=== PATIENT | female | born 1965 | race Caucasian/White ===

== ENCOUNTER 2018-01-10 21:43 | Emergency (ER) | payer OTHER, SELFPAY ==
[2018-01-10 21:45] VITALS: BP 119/66; PULSE 76; RESP 16; O2SAT 96
--- NOTE | 2018-01-10 21:49 | DI.CT.S_ITS ---
PROCEDURE: CT HEAD/BRAIN WO CON INDICATIONS: fall down etoh TECHNIQUE: Noncontrast 4.5 mm thick angled axial sections acquired from the foramen magnum to the vertex, with coronal and sagittal reformats. For radiation dose reduction, the following was used: automated exposure control, adjustment of mA and/or kV according to patient size. COMPARISON: None. FINDINGS: Image quality: Excellent. CSF spaces: Basal cisterns are patent. No extra-axial fluid collections. Ventricles are normal in size and shape. Brain: No midline shift. No intracranial masses or hemorrhage. Contreras-white matter interface is normal. Skull and face: Calvarium and visualized facial bones are intact, without suspicious lesions. Sinuses: Visualized sinuses and mastoids are clear. IMPRESSION: 1. No acute intracranial abnormalities. No significant discrepancy with the marine steam fitter helper radiology preliminary report. Dictated by: Stephie Weems M.D. on 01/11/2018 at 7:19 Approved by: Stephie Weems M.D. on 01/11/2018 at 7:20
--- NOTE | 2018-01-10 22:40 | ED.FALL ---
HPI - Fall General Chief Complaint: Fall Stated Complaint: GLF Time Seen by Provider: 01/10/18 21:49 Source: EMS Mode of arrival: EMS History of Present Illness HPI Narrative: Patient is a 52-year-old female who presents after a ground level fall. She is intoxicated she was out the art [place] when she fell down. No loss of consciousness. Initially refused to come however changed her mind. She is awake alert answering questions. She does have some slurring of speech. No other injuries. Related Data Home Medications Medication Instructions Recorded Confirmed IBUPROFEN (Motrin / Advil) 600 mg PO PRN #0 08/11/09 Allergies Allergy/AdvReac Type Severity Reaction Status Date / Time No Known Drug Allergies Allergy Verified 01/10/18 21:57 Review of Systems Review of Systems All systems reviewed & are unremarkable except as noted in HPI and below Constitutional Denies chills, Denies fever(s), Denies lethargy and Denies weakness Eyes Denies change in vision, Denies eye discharge, Denies irritation and Denies loss of vision ENT Ears, Nose, Mouth, and Throat: Denies change in voice, Denies neck pain and Denies sore throat Cardiovascular Denies chest pain, Denies irregular heart rhythm, Denies lightheadedness, Denies palpitations, Denies dyspnea, Denies dyspnea on exertion and Denies orthopnea Respiratory Denies cough, Denies dyspnea, Denies dyspnea on exertion and Denies wheezing Gastrointestinal Gastrointestinal: Denies abdominal pain, Denies change in bowel habits, Denies diarrhea, Denies nausea and Denies vomiting Musculoskeletal Denies neck pain Integumentary/Breasts Denies pruritus, Denies erythema, Denies rash and Denies wounds Neurologic Denies loss of vision and Denies weakness Endocrine Denies palpitations Allergic/Immunologic Denies wheezing Exam Initial Vital Signs Initial Vital Signs: Vital Signs Pulse Rate 76 01/10/18 21:45 Respiratory Rate 16 01/10/18 21:45 Blood Pressure 119/66 01/10/18 21:45 Pulse Oximetry 96 01/10/18 21:45 GENERAL: Awake alert follows commands, mild slurring of speech HEENT: Head atraumatic,EOMI, pupils reactive, neck is supple no vertebral tenderness no sign of trauma CARDIOVASCULAR: Regular rate and rhythm without murmurs, rubs or gallops. RESPIRATORY: Breath sounds equal bilaterally, no wheezes rales or rhonchi. ABDOMEN: Soft, nontender. Normoactive bowel sounds all 4 quadrants. No guarding or rebound. EXTREMITIES: Normal range of motion, no clubbing or edema. Neurovascularly intact NEUROLOGICAL: Alert and orientedx3. Cranial nerves II through XII grossly intact. Good [id number], good jgpr-ij-[id number], strength equal bilaterally, no dysarthria or aphasia, sensation in tact to soft touch bilaterally, no visual changes, no facial droop SKIN: Warm, dry, no laceration, no petechiae, no rashes or lesions. [facility] Social History Smoking Status: Never smoker Course Orders Ordered: ED Orders 01/10/18 21:49 CT head/brain wo con Stat Vital Signs - 8 hr 01/10/18 21:45 Pulse Rate 76 Respiratory Rate 16 Blood Pressure 119/66 Pulse Oximetry 96 MDM - Fall Imaging Data CT scan - head: Radiologist's impression: .net developer report: No head CT evidence of hemorrhage, mass or acute infarct MDM Narrative Medical decision making narrative: Patient has a ride home. She has a steady gait Discharge Plan Departure Patient Disposition: Home, Self-Care Clinical Impression: Closed head injury, Alcohol intoxication Discharge Date/Time: 01/10/18 23:05 Interventions: ED Discharge Assessment Last Done: 01/10/18 23:04 Instructions: DI for Alcohol Abuse, DI for Closed Head Injury Activity Restrictions/Additional Instructions: *You have been diagnosed with closed head injury, alcohol intoxication *Continue to take medications as directed *Follow up with your primary care provider in 2-3 days *Return to ER if you should have change in behavior, weakness, or any new, worsening or concerning symptoms Prescriptions: No Action IBUPROFEN (Motrin / Advil) 600 mg PO PRN Qty: 0 RF: 0
--- NOTE | 2018-01-10 22:44 | ED_ITS ---
HPI - Fall General Chief Complaint: Fall Stated Complaint: GLF Time Seen by Provider: 01/10/18 21:49 Source: EMS Mode of arrival: EMS History of Present Illness HPI Narrative: Patient is a 52-year-old female who presents after a ground level fall. She is intoxicated she was out the art festival when she fell down. No loss of consciousness. Initially refused to come however changed her mind. She is awake alert answering questions. She does have some slurring of speech. No other injuries. Related Data Home Medications Medication Instructions Recorded Confirmed IBUPROFEN (Motrin / Advil) 600 mg PO PRN #0 08/11/09 Allergies Allergy/AdvReac Type Severity Reaction Status Date / Time No Known Drug Allergies Allergy Verified 01/10/18 21:57 Review of Systems Review of Systems All systems reviewed & are unremarkable except as noted in HPI and below Constitutional Denies chills, Denies fever(s), Denies lethargy and Denies weakness Eyes Denies change in vision, Denies eye discharge, Denies irritation and Denies loss of vision ENT Ears, Nose, Mouth, and Throat: Denies change in voice, Denies neck pain and Denies sore throat Cardiovascular Denies chest pain, Denies irregular heart rhythm, Denies lightheadedness, Denies palpitations, Denies dyspnea, Denies dyspnea on exertion and Denies orthopnea Respiratory Denies cough, Denies dyspnea, Denies dyspnea on exertion and Denies wheezing Gastrointestinal Gastrointestinal: Denies abdominal pain, Denies change in bowel habits, Denies diarrhea, Denies nausea and Denies vomiting Musculoskeletal Denies neck pain Integumentary/Breasts Denies pruritus, Denies erythema, Denies rash and Denies wounds Neurologic Denies loss of vision and Denies weakness Endocrine Denies palpitations Allergic/Immunologic Denies wheezing Exam Initial Vital Signs Initial Vital Signs: Vital Signs Pulse Rate 76 01/10/18 21:45 Respiratory Rate 16 01/10/18 21:45 Blood Pressure 119/66 01/10/18 21:45 Pulse Oximetry 96 01/10/18 21:45 GENERAL: Awake alert follows commands, mild slurring of speech HEENT: Head atraumatic,EOMI, pupils reactive, neck is supple no vertebral tenderness no sign of trauma CARDIOVASCULAR: Regular rate and rhythm without murmurs, rubs or gallops. RESPIRATORY: Breath sounds equal bilaterally, no wheezes rales or rhonchi. ABDOMEN: Soft, nontender. Normoactive bowel sounds all 4 quadrants. No guarding or rebound. EXTREMITIES: Normal range of motion, no clubbing or edema. Neurovascularly intact NEUROLOGICAL: Alert and orientedx3. Cranial nerves II through XII grossly intact. Good [id number], good fgdg-gv-kjsg, strength equal bilaterally, no dysarthria or aphasia, sensation in tact to soft touch bilaterally, no visual changes, no facial droop SKIN: Warm, dry, no laceration, no petechiae, no rashes or lesions. [facility] Social History Smoking Status: Never smoker Course Orders Ordered: ED Orders 01/10/18 21:49 CT head/brain wo con Stat Vital Signs - 8 hr 01/10/18 21:45 Pulse Rate 76 Respiratory Rate 16 Blood Pressure 119/66 Pulse Oximetry 96 MDM - Fall Imaging Data CT scan - head: Radiologist's impression: assembler 1st shift report: No head CT evidence of hemorrhage, mass or acute infarct MDM Narrative Medical decision making narrative: Patient has a ride home. She has a steady gait Discharge Plan Departure Patient Disposition: Home, Self-Care Clinical Impression: Closed head injury, Alcohol intoxication Discharge Date/Time: 01/10/18 23:05 Interventions: ED Discharge Assessment Last Done: 01/10/18 23:04 Instructions: DI for Alcohol Abuse, DI for Closed Head Injury Activity Restrictions/Additional Instructions: *You have been diagnosed with closed head injury, alcohol intoxication *Continue to take medications as directed *Follow up with your primary care provider in 2-3 days *Return to ER if you should have change in behavior, weakness, or any new, worsening or concerning symptoms Prescriptions: No Action IBUPROFEN (Motrin / Advil) 600 mg PO PRN Qty: 0 RF: 0
== END 2018-01-10 23:05 | disposition home or self-care (01) ==
PROVIDERS: Emergency Provider Emergency Medicine
DX: S09.90XA Unspecified injury of head, initial encounter (principal); F10.929 Alcohol use, unspecified with intoxication, unspecified; W18.30XA Fall on same level, unspecified, initial encounter
CPT/HCPCS: 70450; 99282; 99284

== ENCOUNTER 2018-10-08 13:24 | Emergency (ER) | payer OTHER, SELFPAY ==
[2018-10-08 13:41] VITALS: BP 147/92; PULSE 74; RESP 12; TEMP 36.2; O2SAT 98; BMI 29.9
[2018-10-08] MEDS: TET,DIPH,PERTUSS(ACELL),VAC/PF 0.5 ML SYRINGE IM (15:20)
[2018-10-08 17:43] VITALS: BP 158/76; PULSE 56; RESP 16
--- NOTE | 2018-10-08 20:52 | ED.WOUNDLAC ---
HPI - Wound/Laceration <MAURICIO Rocha - Last Filed: 10/08/18 20:58> General Chief Complaint: Wound/Laceration Stated Complaint: Right heel cut by door Time Seen by Provider: 10/08/18 15:10 Source: patient and family Mode of arrival: ambulatory Limitations: no limitations History of Present Illness HPI narrative: The patient is a 53-year-old female nonsmoker presents with chief complaint of laceration to her right heel, which was done by a a metal door. She denies any decreased range of motion. She has not washed out. She does not know when her last tetanus was. She denies any possibility of of foreign body. This happened at work. Related Data Home Medications Medication Instructions Recorded Confirmed IBUPROFEN (Motrin / Advil) 600 mg PO PRN #0 08/11/09 Allergies Allergy/AdvReac Type Severity Reaction Status Date / Time No Known Drug Allergies Allergy Verified 10/08/18 13:48 Review of Systems <MAURICIO Rocha - Last Filed: 10/08/18 20:58> Review of Systems GENERAL: Denies chills, fatigue, malaise, fever, sweats. HEENT: Denies sinus pain, ear pain, sore throat, difficulty swallowing, dizziness. RESPIRATORY: Denies dyspnea, cough, wheezing, hemoptysis, sputum. CARDIOVASCULAR: Denies chest pain, palpitations, orthopnea, edema, GASTROINTESTINAL: Denies nausea, vomiting, abdominal pain, diarrhea, constipation, melena. : Denies dysuria, frequency, incontinence, hematuria, urinary retention. MUSCULOSKELETAL: See HPI SKIN: See HPI NEUROLOGIC: Denies weakness, headache, numbness, change in speech, confusion, seizures, incoordination. PSYCHIATRIC: No concerning psychosocial issues. 12 point review of systems is negative except for those stated above PFSH <MAURICIO Rocha - Last Filed: 10/08/18 20:58> Social History Smoking Status: Never smoker Social History Smoking Status: Never smoker Exam <MAURICIO Rocha - Last Filed: 10/08/18 20:58> Narrative Exam Narrative: GENERAL: This is a well-nourished, well-developed patient, in mild distress. HEAD: Atraumatic. Normocephalic. No temporal or scalp tenderness. EYES: Pupils equal round and reactive. Extraocular motions intact. No scleral icterus. No injection or drainage. ENT: Nose without bleeding, purulent drainage or septal hematoma. Throat without erythema, tonsillar hypertrophy or exudate. Uvula midline. Airway patent. NECK: Trachea midline. No JVD or lymphadenopathy. Supple, nontender, no meningeal signs. CARDIOVASCULAR: Regular rate and rhythm RESPIRATORY: No increased respiratory effort. No accessory muscle use. EXTREMITIES: No pain to palpation right ankle. Full range of motion noted right ankle. Positive radial pulse. BACK: Nontender without deformity or crepitance. No flank tenderness. NEURO: AOx3. SKIN: 2 cm linear laceration posterior aspect of right heel. Through dermis. No obvious tendon or muscle involvement. No obvious foreign body. Initial Vital Signs Initial Vital Signs: Vital Signs Temperature 97.1 F L 10/08/18 13:41 Pulse Rate 74 10/08/18 13:41 Respiratory Rate 12 10/08/18 13:41 Blood Pressure 147/92 H 10/08/18 13:41 Pulse Oximetry 98 10/08/18 13:41 <Tami Muñoz MD - Last Filed: 10/09/18 12:05> Initial Vital Signs Initial Vital Signs: Vital Signs Temperature 97.1 F L 10/08/18 13:41 Pulse Rate 74 10/08/18 13:41 Respiratory Rate 12 10/08/18 13:41 Blood Pressure 147/92 H 10/08/18 13:41 Pulse Oximetry 98 10/08/18 13:41 Procedures <MAURICIO Rocha - Last Filed: 10/08/18 20:58> Laceration Repair Laceration 1: Site: lower extremity Side (If applicable): right Size (cm): 2 Description: linear Depth: simple, single layer Local Anesthetic: lidocaine 1% Amount of anesthesia used (mL): 3 Pre-repair: wound explored and irrigated extensively (Hibiclens and sterile water) Skin layer closed with: nylon Size (cm): 4-0 Number of sutures: 3 Technique: simple, interrupted Course <MAURICIO Rocha - Last Filed: 10/08/18 20:58> Orders Ordered: Discontinued Medications Diphtheria/Tetanus/Acell Pertussis (Adacel) 0.5 ml IM .ONCE ONE Stop: 10/08/18 14:33 Last Admin: 10/08/18 15:20 Dose: 0.5 ml Vital Signs - 8 hr 10/08/18 13:41 10/08/18 17:43 Temperature 97.1 F L Pulse Rate 74 56 L Respiratory Rate 12 16 Blood Pressure 147/92 H Blood Pressure [Right Arm] 158/76 H Pulse Oximetry 98 <Tami Muñoz MD - Last Filed: 10/09/18 12:05> Orders Ordered: Discontinued Medications Diphtheria/Tetanus/Acell Pertussis (Adacel) 0.5 ml IM .ONCE ONE Stop: 10/08/18 14:33 Last Admin: 10/08/18 15:20 Dose: 0.5 ml Vital Signs - 8 hr 10/08/18 13:41 10/08/18 17:43 Temperature 97.1 F L Pulse Rate 74 56 L Respiratory Rate 12 16 Blood Pressure 147/92 H Blood Pressure [Right Arm] 158/76 H Pulse Oximetry 98 MDM - Wound/Laceration <CARL Rocha - Last Filed: 10/08/18 20:58> [facility] Narrative Medical decision making narrative: The patient is a 53-year-old female who presents with a chief complaint of laceration. It was closed as documented and procedural note. She tolerated it well. She was updated on her tetanus. I discussed at length monitor for signs and symptoms of infection including redness pus etc. Encouraged follow-up with primary care provider as well as follow up with suture removal in approximately 8-10 days. Patient has no questions or concerns upon discharge and states understanding of return precautions as well as follow-up care. They did decline an x-ray to check for foreign body. She does have full range of motion. L and I paperwork filled out. Discharge Plan Departure Patient Disposition: Home Clinical Impression: Laceration Discharge Date/Time: 10/08/18 17:53 Interventions: ED Discharge Assessment Last Done: 10/08/18 17:52 Instructions: DI for Laceration Repair -- Simple, DI for Minor Laceration Activity Restrictions/Additional Instructions: Today we cleansed her wound, updated her tetanus. Please rest her leg and keep it elevated. Please monitor for signs and symptoms of infection such as redness, pus and fever. Please follow up to have her sutures removed in about 8-10 days. You can contact the health land resource specialist at [phone] to help follow up with primary care provider. Please rest her leg and use [id number] pain medications as needed and able. Please do not submerge your foot and dirty water or swim in dirty water. Prescriptions: No Action IBUPROFEN (Motrin / Advil) 600 mg PO PRN Qty: 0 RF: 0
--- NOTE | 2018-10-08 20:57 | ED_ITS ---
HPI - Wound/Laceration <MAURICIO Rocha - Last Filed: 10/08/18 20:58> General Chief Complaint: Wound/Laceration Stated Complaint: Right heel cut by door Time Seen by Provider: 10/08/18 15:10 Source: patient and family Mode of arrival: ambulatory Limitations: no limitations History of Present Illness HPI narrative: The patient is a 53-year-old female nonsmoker presents with chief complaint of laceration to her right heel, which was done by a a metal door. She denies any decreased range of motion. She has not washed out. She does not know when her last tetanus was. She denies any possibility of of foreign body. This happened at work. Related Data Home Medications Medication Instructions Recorded Confirmed IBUPROFEN (Motrin / Advil) 600 mg PO PRN #0 08/11/09 Allergies Allergy/AdvReac Type Severity Reaction Status Date / Time No Known Drug Allergies Allergy Verified 10/08/18 13:48 Review of Systems <MAURICIO Rocha - Last Filed: 10/08/18 20:58> Review of Systems GENERAL: Denies chills, fatigue, malaise, fever, sweats. HEENT: Denies sinus pain, ear pain, sore throat, difficulty swallowing, dizziness. RESPIRATORY: Denies dyspnea, cough, wheezing, hemoptysis, sputum. CARDIOVASCULAR: Denies chest pain, palpitations, orthopnea, edema, GASTROINTESTINAL: Denies nausea, vomiting, abdominal pain, diarrhea, constipation, melena. : Denies dysuria, frequency, incontinence, hematuria, urinary retention. MUSCULOSKELETAL: See HPI SKIN: See HPI NEUROLOGIC: Denies weakness, headache, numbness, change in speech, confusion, seizures, incoordination. PSYCHIATRIC: No concerning psychosocial issues. 12 point review of systems is negative except for those stated above PFSH <MAURICIO Rocha - Last Filed: 10/08/18 20:58> Social History Smoking Status: Never smoker Social History Smoking Status: Never smoker Exam <MAURICIO Rocha - Last Filed: 10/08/18 20:58> Narrative Exam Narrative: GENERAL: This is a well-nourished, well-developed patient, in mild distress. HEAD: Atraumatic. Normocephalic. No temporal or scalp tenderness. EYES: Pupils equal round and reactive. Extraocular motions intact. No scleral icterus. No injection or drainage. ENT: Nose without bleeding, purulent drainage or septal hematoma. Throat without erythema, tonsillar hypertrophy or exudate. Uvula midline. Airway patent. NECK: Trachea midline. No JVD or lymphadenopathy. Supple, nontender, no meningeal signs. CARDIOVASCULAR: Regular rate and rhythm RESPIRATORY: No increased respiratory effort. No accessory muscle use. EXTREMITIES: No pain to palpation right ankle. Full range of motion noted right ankle. Positive radial pulse. BACK: Nontender without deformity or crepitance. No flank tenderness. NEURO: AOx3. SKIN: 2 cm linear laceration posterior aspect of right heel. Through dermis. No obvious tendon or muscle involvement. No obvious foreign body. Initial Vital Signs Initial Vital Signs: Vital Signs Temperature 97.1 F L 10/08/18 13:41 Pulse Rate 74 10/08/18 13:41 Respiratory Rate 12 10/08/18 13:41 Blood Pressure 147/92 H 10/08/18 13:41 Pulse Oximetry 98 10/08/18 13:41 <Tami Muñoz MD - Last Filed: 10/09/18 12:05> Initial Vital Signs Initial Vital Signs: Vital Signs Temperature 97.1 F L 10/08/18 13:41 Pulse Rate 74 10/08/18 13:41 Respiratory Rate 12 10/08/18 13:41 Blood Pressure 147/92 H 10/08/18 13:41 Pulse Oximetry 98 10/08/18 13:41 Procedures <MAURICIO Rocha - Last Filed: 10/08/18 20:58> Laceration Repair Laceration 1: Site: lower extremity Side (If applicable): right Size (cm): 2 Description: linear Depth: simple, single layer Local Anesthetic: lidocaine 1% Amount of anesthesia used (mL): 3 Pre-repair: wound explored and irrigated extensively (Hibiclens and sterile water) Skin layer closed with: nylon Size (cm): 4-0 Number of sutures: 3 Technique: simple, interrupted Course <MAURICIO Rocha - Last Filed: 10/08/18 20:58> Orders Ordered: Discontinued Medications Diphtheria/Tetanus/Acell Pertussis (Adacel) 0.5 ml IM .ONCE ONE Stop: 10/08/18 14:33 Last Admin: 10/08/18 15:20 Dose: 0.5 ml Vital Signs - 8 hr 10/08/18 13:41 10/08/18 17:43 Temperature 97.1 F L Pulse Rate 74 56 L Respiratory Rate 12 16 Blood Pressure 147/92 H Blood Pressure [Right Arm] 158/76 H Pulse Oximetry 98 <Tami Muñoz MD - Last Filed: 10/09/18 12:05> Orders Ordered: Discontinued Medications Diphtheria/Tetanus/Acell Pertussis (Adacel) 0.5 ml IM .ONCE ONE Stop: 10/08/18 14:33 Last Admin: 10/08/18 15:20 Dose: 0.5 ml Vital Signs - 8 hr 10/08/18 13:41 10/08/18 17:43 Temperature 97.1 F L Pulse Rate 74 56 L Respiratory Rate 12 16 Blood Pressure 147/92 H Blood Pressure [Right Arm] 158/76 H Pulse Oximetry 98 MDM - Wound/Laceration <CARL Rocha - Last Filed: 10/08/18 20:58> [facility] Narrative Medical decision making narrative: The patient is a 53-year-old female who presents with a chief complaint of laceration. It was closed as documented and procedural note. She tolerated it well. She was updated on her tetanus. I discussed at length monitor for signs and symptoms of infection including red ness pus etc. Encouraged follow-up with primary care provider as well as follow up with suture removal in approximately 8-10 days. Patient has no questions or concerns upon discharge and states understanding of return precautions as well as follow-up care. They did decline an x-ray to check for foreign body. She does have full range of motion. L and I paperwork filled out. Discharge Plan Departure Patient Disposition: Home Clinical Impression: Laceration Discharge Date/Time: 10/08/18 17:53 Interventions: ED Discharge Assessment Last Done: 10/08/18 17:52 Instructions: DI for Laceration Repair -- Simple, DI for Minor Laceration Activity Restrictions/Additional Instructions: Today we cleansed her wound, updated her tetanus. Please rest her leg and keep it elevated. Please monitor for signs and symptoms of infection such as redness, pus and fever. Please follow up to have her sutures removed in about 8-10 days. You can contact the health senior human resources representative at [phone] to help follow up with primary care provider. Please rest her leg and use [id number] pain medications as needed and able. Please do not submerge your foot and dirty water or swim in dirty water. Prescriptions: No Action IBUPROFEN (Motrin / Advil) 600 mg PO PRN Qty: 0 RF: 0
== END 2018-10-08 17:53 | disposition home or self-care (01) ==
PROVIDERS: Emergency Provider Nurse Practitioner Family
DX: S91.311A Laceration without foreign body, right foot, initial encounter (principal); W26.8XXA Contact with other sharp object(s), not elsewhere classified, initial encounter; Y99.0 Civilian activity done for income or pay; Z23 Encounter for immunization
CPT/HCPCS: 12001; 90471; 99283; 90715

== ENCOUNTER → 2020-02-16 08:01 | Outpatient (CLI) | payer OTHER, SELFPAY ==
--- NOTE | 2020-02-16 | DI.RAD.S_ITS ---
PROCEDURE: XR LUMBAR SPINE 2-3V INDICATIONS: LUMBAR AND HIP PAIN TECHNIQUE: 3 views of the lumbar spine were acquired. COMPARISON: None. FINDINGS: Bones: Mild dextroconvex scoliotic curvature is seen. 5 nonrib-bearing, lumbar type vertebral bodies are seen. No displaced fractures are seen. No suspicious lytic or blastic lesions are seen. Mild loss of disc height is seen at the L4-5 level. The disc heights otherwise appear well-preserved. Lower lumbar spine facet arthropathy is seen. Moderate hip joint degenerative change is noted, right worse than left. Soft tissues: Overlying bowel gas pattern is normal. No suspicious soft tissue calcifications. IMPRESSION: Lumbar spine degenerative changes are seen by plain film, which are most prominent at the L4-5 level. Note is made of moderate degenerative change of the hips, right worse than left. Dictated by: Oneal Hobbs M.D. on 02/16/2020 at 11:58 Approved by: Oneal Hobbs M.D. on 02/16/2020 at 11:59
== END ==
PROVIDERS: PCP Nurse Practitioner Family; Referring Provider Chiropractor; Visit Provider Chiropractor
DX: M54.5 Low back pain (principal); M25.551 Pain in right hip; M47.816 Spondylosis without myelopathy or radiculopathy, lumbar region
CPT/HCPCS: 72100

== ENCOUNTER → 2020-08-25 14:42 | Outpatient (CLI) | payer OTHER, SELFPAY ==
[2020-08-25] MEDS: COVID-19 VACC #1, MRNA(MOD) 100 MCG/0.5 ML VIAL IM (14:50)
== END ==
PROVIDERS: PCP Nurse Practitioner Family; Visit Provider Internal Medicine
DX: Z23 Encounter for immunization (principal)
CPT/HCPCS: 0011A; 91301

== ENCOUNTER → 2020-09-23 07:31 | Outpatient (CLI) | payer OTHER, SELFPAY ==
[2020-09-23] MEDS: COVID-19 VACC #2, MRNA(MOD) 100 MCG/0.5 ML VIAL IM (07:37)
== END ==
PROVIDERS: PCP Nurse Practitioner Family; Visit Provider Internal Medicine
DX: Z23 Encounter for immunization (principal)
CPT/HCPCS: 0012A; 91301

== ENCOUNTER → 2023-04-29 12:08 | Outpatient (CLI) | payer OTHER, SELFPAY ==
[2023-04-29 13:12] LABS: Add Manual Diff / Slide Review NO; Basophils Absolute Auto 100 /uL (0-100); Eosinophils Absolute Auto 200 /uL (0-450); Eosinophils Percent Auto 3.2 % (2-4); Hematocrit 40.7 % (36-46); Hemoglobin 13.9 g/dL (12.0-16.0); Lymphocytes Absolute Auto 2100 /uL (1100-4500); Lymphocytes Percent Auto 33.9 % (25-40); Mean Corpuscular HGB Conc 34.1 % (30-36); Mean Corpuscular Hemoglobin 32.4 PG (26-34); Mean Corpuscular Volume 95.1 fL (80-100); Monocytes Absolute Auto 400 /uL (0-900); Monocytes Percent Auto 6.8 % (3-14); Neutrophils Absolute Auto 3400 /uL (1500-7000); Neutrophils Percent Auto 55.1 % (50-75); Platelet Count 227 X10^3/uL (150-400); Red Blood Cell Count 4.29 X10^6/uL (4.0-5.2); Red Cell Distribution Width 12.3 % (11.6-14.8); White Blood Cell Count 6.2 X10^3/uL (4.5-11.0)
[2023-04-29 13:48] LABS: Alanine Aminotransferase 33 IU/L (<35); Albumin 4.4 g/dL (3.5-5.0); Albumin Globulin Ratio 1.6 (1.0-2.8); Alkaline Phosphatase 73 U/L (38-126); Aspartate Aminotransferase 37 IU/L (14-36); BUN Creatinine Ratio 27.4 (6-22); Bilirubin Total 0.6 mg/dL (0.2-1.3); Blood Urea Nitrogen 20 mg/dL (7-17); Calcium 10.3 mg/dL (8.4-10.2); Carbon Dioxide 29 mmol/L (22-32); Chloride 102 mmol/L (98-107); Estimated Glomerular Filt Rate > 60 mL/min (>60); Globulin 2.8 g/dL (1.7-4.1); Glucose 115 mg/dL (70-100); HEMOLYSIS < 15 (0-50); Potassium 4.2 mmol/L (3.4-5.1); Sodium 136 mmol/L (137-145); Total Protein 7.2 g/dL (6.3-8.2)
[2023-04-29 13:59] LABS: TSH w/ Reflex to FT4 5.34 uIU/mL (0.47-4.68)
[2023-04-29 14:55] LABS: Appearance Urine UA CLEAR; Bilirubin Urine UA NEGATIVE (NEGATIVE); Color Urine UA YELLOW; Glucose Urine UA NEGATIVE (Negative); Ketones Urine UA NEGATIVE (NEGATIVE); Leukocyte Esterase Urine UA 1+ (NEGATIVE); Nitrite Urine UA NEGATIVE (Negative); Occult Blood Urine UA NEGATIVE (Negative); Protein Urine UA NEGATIVE (Negative); Urobilinogen Urine UA 0.2 E.U./dL (0.2)
[2023-04-29 15:07] LABS: Free T4, Direct Thyroxine 0.72 ng/dL (0.78-2.19)
[2023-04-29 15:13] LABS: RBC Urine 0-1/HPF (0-5/HPF); WBC Urine 5-10/HPF (0-5/HPF)
[2023-04-29 15:14] LABS: Bacteria Urine Occasional (0-1); Culture Indicated Urine Specimen Cultured; Squamous Epithelial Cell Urine 1-5 /HPF (0-5/HPF)
[2023-04-29 16:40] LABS: Microalbumin Urine Random 0.6 mg/dL (0-1.6)
[2023-04-29 16:44] LABS: Creatinine Urine Random 26.1 mg/dL; Microalbumi Creatinin Ratio Ur 22.9 ug/mg CR (<30)
== END ==
PROVIDERS: PCP Registered Nurse Diabetes Educator; Referring Provider Registered Nurse Diabetes Educator; Visit Provider Registered Nurse Diabetes Educator
DX: I10 Essential (primary) hypertension (principal)
CPT/HCPCS: 36415; 80053; 81001; 82043; 82570; 84439; 84443; 85025; 87086

== ENCOUNTER → 2023-05-24 08:47 | Outpatient (CLI) | payer OTHER, SELFPAY ==
--- NOTE | 2023-05-24 | DI.MRI.S_ITS ---
PROCEDURE: MR ANKLE LT WO CON INDICATIONS: ACHILLES TENDONOSIS OF LEFT ANKLE TECHNIQUE: Noncontrast sagittal T1 spin echo and T2 fast spin echo with fat saturation, axial proton density fast spin echo and T2 fast spin echo with fat saturation, coronal T1 spin echo and T2 fast spin echo with fat saturation through the ankle/hindfoot. COMPARISON: [facility], CR, XR FOOT 3 VIEWS WEIGHT BEARING BILATERAL, 05/14/2023, 14:42. FINDINGS: Image quality: Excellent. 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 There is mild osseous edema at the Achilles insertion. There is a large nonedematous plantar calcaneal enthesophyte. Mild degenerative spurring is seen at the talonavicular and navicular cuneiform articulations. No bone marrow contusions or fractures. No hindfoot coalitions. No osteochondral injuries of the talar dome. Medial structures: The deep and superficial layers of the deltoid ligament appear intact. The spring ligament components are intact. The posterior tibialis, flexor digitorum longus, and flexor hallucis longus tendons are intact. The posterior tibial neurovascular bundle appears normal within the tarsal tunnel, without extrinsic mass effect. Lateral structures: Remote prior low-grade sprains of the anterior talofibular ligament and calcaneofibular ligament. The posterior talofibular ligament is intact. The anterior and posterior tibiofibular ligaments appear intact. Mild peroneus brevis and longus tendinosis. The sinus tarsi demonstrates normal fatty signal. Anterior structures: The tibialis anterior, extensor hallucis longus, and extensor digitorum longus tendons appear intact. The dorsal talonavicular ligament appears intact. Posterior and plantar structures: There is marked thickening of the distal Achilles tendon. Mild focal fluid signal is suspicious for chronic partial tearing. There is a moderate retrocalcaneal bursal effusion or bursitis. The proximal plantar fascia is mildly thickened without surrounding edema. There is severe fatty infiltration of the abductor digiti quinti muscle, consistent with chronic denervation changes/Lo neuropathy. IMPRESSION: 1. 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 2. Moderate retrocalcaneal bursal effusion or bursitis. 3. Mild osseous edema at the posterior calcaneus may be reactive or related to traction trabecular bone injury. A Kiley deformity is noted. 4. Mild chronic proximal plantar fasciitis. 5. Remote prior low-grade sprains of the anterior talofibular ligament and the calcaneofibular ligament. 6. Mild peroneus brevis and longus tendinosis. Approved by: Grant Maya M.D. on 05/24/2023 at 13:47
== END ==
PROVIDERS: PCP Registered Nurse Diabetes Educator; Referring Provider Orthopaedic Surgery Foot and Ankle Surgery; Visit Provider Orthopaedic Surgery Foot and Ankle Surgery
DX: S93.492A Sprain of other ligament of left ankle, initial encounter (principal); S93.411A Sprain of calcaneofibular ligament of right ankle, initial encounter; M67.874 Other specified disorders of tendon, left ankle and foot; M92.62 Juvenile osteochondrosis of tarsus, left ankle; M72.2 Plantar fascial fibromatosis
CPT/HCPCS: 73721

== ENCOUNTER → 2023-05-25 08:09 | Outpatient (CLI) | payer OTHER, SELFPAY ==
[2023-05-25 08:53] LABS: Hemoglobin A1C% w Est Avg Glu 5.8 % (4.0-6.0)
[2023-05-25 08:59] LABS: Alanine Aminotransferase 28 IU/L (<35); Albumin 4.4 g/dL (3.5-5.0); Albumin Globulin Ratio 1.5 (1.0-2.8); Alkaline Phosphatase 58 U/L (38-126); Aspartate Aminotransferase 34 IU/L (14-36); BUN Creatinine Ratio 22.9 (6-22); Bilirubin Total 0.7 mg/dL (0.2-1.3); Blood Urea Nitrogen 16 mg/dL (7-17); Calcium 10.1 mg/dL (8.4-10.2); Carbon Dioxide 29 mmol/L (22-32); Chloride 101 mmol/L (98-107); Cholesterol 255 mg/dL (140-199); Estimated Glomerular Filt Rate > 60 mL/min (>60); Glucose 113 mg/dL (70-100); HDL Cholesterol 89 mg/dL (40-60); HEMOLYSIS < 15 (0-50); LDL Cholesterol Calculated 148 mg/dL (<100); Potassium 4.8 mmol/L (3.4-5.1); Sodium 135 mmol/L (137-145); Total Protein 7.4 g/dL (6.3-8.2); Triglycerides 88 mg/dL (35-150)
[2023-05-25 08:59] LABS: Appearance Urine UA CLEAR; Bilirubin Urine UA NEGATIVE (NEGATIVE); Color Urine UA YELLOW; Glucose Urine UA NEGATIVE (Negative); Ketones Urine UA NEGATIVE (NEGATIVE); Leukocyte Esterase Urine UA NEGATIVE (NEGATIVE); Nitrite Urine UA NEGATIVE (Negative); Occult Blood Urine UA NEGATIVE (Negative); Protein Urine UA NEGATIVE (Negative); Specific Gravity Urine UA 1.015 (1.000-1.035); Urobilinogen Urine UA 0.2 E.U./dL (0.2)
[2023-05-25 09:21] LABS: Bacteria Urine Occasional (0-1); Culture Indicated Urine Cult Not Indicated; RBC Urine None Seen (0-5/HPF); Squamous Epithelial Cell Urine 0-1 /HPF (0-5/HPF); WBC Urine 0-1/HPF (0-5/HPF)
[2023-05-25 09:27] LABS: Free T4, Direct Thyroxine 0.69 ng/dL (0.78-2.19)
[2023-05-25 10:18] LABS: Thyroid Stimulating Hormone 3.02 uIU/mL (0.47-4.68)
[2023-05-28 20:17] LABS: Calcium 9.8 mg/dL (8.7-10.2); Parathyroid Hormone, Intact 30 pg/mL (15-65)
== END ==
PROVIDERS: PCP Registered Nurse Diabetes Educator; Referring Provider Registered Nurse Diabetes Educator; Visit Provider Registered Nurse Diabetes Educator
DX: I10 Essential (primary) hypertension (principal); R79.89 Other specified abnormal findings of blood chemistry; R74.8 Abnormal levels of other serum enzymes; E83.52 Hypercalcemia
CPT/HCPCS: 36415; 80053; 80061; 81001; 82310; 83036; 83970; 84439; 84443

== ENCOUNTER → 2023-05-30 14:17 | Outpatient (CLI) | payer OTHER, SELFPAY ==
--- NOTE | 2023-06-01 07:03 | DI.NM.S_ITS ---
DATE OF SERVICE: 05/31/2023 STUDY: Exercise perfusion study INDICATION: Abnormal EKG with left posterior fascicular block, hypertension. RADIOPHARMACEUTICAL: 27.5 mCi technetium-99m Myoview IV was injected at stress and 25.5 mCi technetium-99m Myoview IV was injected at rest. CARDIAC STRESS: The patient underwent exercise perfusion study under the supervision of an attending staff. The patient walked on Brian protocol for 7 minutes and 30 seconds, achieved SHAYLEE -5%, 10 METs of workload. Baseline blood pressure 128/86 and peak blood pressure 210/100. Baseline rhythm was sinus. There was no left posterior fascicular block. During stress, nonspecific [id number]. No significant arrhythmias. No chest pain or anginal symptoms. The patient felt fatigue and dyspnea. RAW DATA: Breast shadow seen. GATED STUDY: Stress LV ejection fraction 66% without any obvious wall motion abnormalities. Resting end-diastolic volume 110 mL. TID ratio reported to be 1.31 which is abnormal. Lung/heart ratio 0.25 which is within normal limits. MYOCARDIAL PERFUSION SCAN: Stress supine, resting supine and stress prone images were compared to each other. Stress supine images revealed small-size, mildly decreased perfusion of anterior wall and distal anterior septum which got resolved during stress prone images suggestive of breast tissue attenuation artifact. No significant perfusion defect. CONCLUSION: 1. On perfusion scan, there is no significant perfusion defect. Anterior wall defect which was seen during stress supine images got improved during stress prone images suggestive of breast tissue to tissue attenuation artifact. However, TID ratio 1.31 which is abnormal. 2. Abnormal TID ratio suggests left main or multivessel coronary artery disease. Balanced ischemia will not show up during perfusion scan and it may appear as normal scan. However, fair exercise tolerance. Hypertensive blood pressure response. No anginal symptoms or ischemic EKG changes. 3. Correlate clinically and consider further cardiac evaluation in view of abnormal TID either by CT coronary angiogram or conventional left heart catheterization. Yessy Bonilla - ADRIENNE/opal/bert doc#: [id number]/job#: [id number] dd: 05/31/2023 16:43:00 dt: 06/01/2023 06:53:00 DICTATING MD/COPIES TO: Myranda Norman MD; Olman Oneil, TISHA COPIES MNE: ALMA;
== END ==
PROVIDERS: PCP Registered Nurse Diabetes Educator; Referring Provider Registered Nurse Diabetes Educator; Visit Provider Registered Nurse Diabetes Educator
DX: I44.5 Left posterior fascicular block (principal); R94.31 Abnormal electrocardiogram [ECG] [EKG]; I10 Essential (primary) hypertension
CPT/HCPCS: 78452; 93017; A9502

== ENCOUNTER → 2023-06-07 09:07 | Outpatient (CLI) | payer OTHER, SELFPAY ==
--- NOTE | 2023-06-07 09:08 | DI.ECHO.S_ITS ---
[place] [facility]---------+ [facility] +---------+ : : [address] : : : : [id number] : : : : Phone: [phone]+ Echocardiogram Report + + :Name: MARY CISNEROS Study Date: 06/07/2023 Height: 65 in : :[facility] ReadingLocation: Weight: 214 lb : : Gender: Female BSA: 2.0 m2 : :: 1965 Age: 58 yrs BP: 128/84 mmHg: :Reason For Study: HYPERTENSION : :Ordering Physician: JONN, : :LYSSA Performed By: Corie Funes : :Referring: LYSSA LUNSFORD : + + Interpretation Summary 1) Mildly increased left ventricular thickness (concentric) with normal size, normal wall motion, and normal systolic function (EF 60-65%). 2) Normal right ventricular size and function. 3) No significant valvular abnormalities. 4) No prior Echo available for comparison. Procedure: A two-dimensional transthoracic echocardiogram with color flow and Doppler was performed. The study quality was technically adequate. There is no prior echocardiogram noted for this patient. The patient was in sinus rhythm with heart rates between 53-73 bpm during the exam. Left Ventricle: The left ventricle is normal in size. There is mild concentric left ventricular hypertrophy. The ejection fraction is estimated to be 60-65%. Left ventricular systolic function appears normal without focal wall motion abnormalities. Diastolic parameters suggest a relaxation abnormality of the left ventricle, consistent with probable normal filling pressures. Right Ventricle: The right ventricle is normal in size and function. Atria: The left atrial size is normal. Right atrial size is normal. There is no Doppler evidence for an interatrial shunt. Mitral Valve: The mitral valve is normal in structure and function. There is no mitral regurgitation noted. Aortic Valve: The aortic valve is trileaflet. The aortic valve opens well. There is no aortic valve stenosis. No aortic regurgitation is present. Tricuspid Valve: The tricuspid valve is normal in structure and function. There is trace tricuspid regurgitation. Pulmonic Valve: The pulmonic valve leaflets are thin and pliable; valve motion is normal. There is trace pulmonic regurgitation. Great Vessels: The aortic root is normal size. The dimensions of the ascending aorta are normal. The IVC is of normal diameter and collapses greater than 50% with a sniff. This suggests a low right atrial pressure of 3 mm Hg. Pericardium/ Pleura There is no pericardial effusion. There is no pleural effusion. MMode/2D Measurements & Calculations LVIDd: 5.0 cm LVOT diam: 2.2 cm LVIDs: 3.4 cm Ao root diam: 3.1 cm FS: 32.7 % asc Aorta Diam: 3.6 cm EPSS: 0.57 cm Ao Arch Diam (Prox Trans): 2.9 cm IVSd: 1.4 cm LVPWd: 1.1 cm LV valencia. diameter/BSA (cm/m^2): 2.4 LV sys. diameter/BSA (cm/m^2): 1.6 LA A2 area: 19.2 cm2 RA long axis: 4.6 cm LA A4 area: 18.1 cm2 RA area: 13.9 cm2 LA length (vol): 5.0 cm RA vol: 35.4 ml LA vol: 59.4 ml RA : 17.4 ml/m2 LA vol index: 29.2 ml/m2 IVC diam: 2.0 cm RVD1 (basal): 4.0 cm TAPSE: 2.3 cm Doppler Measurements & Calculations Ao V2 max: 167.2 cm/sec LVOT Max Declan: 123.5 cm/sec Ao V2 mean: 123.1 cm/sec LV V1 max P.1 mmHg Ao max P.2 mmHg LV V1 VTI: 27.7 cm Ao mean P.6 mmHg MANN(I,D): 2.8 cm2 Ao V2 VTI: 38.4 cm MANN(V,D): 2.8 cm2 sev ratio: 0.72 MNAN indexed to BSA (cm^2/m^2): 1.4 MV E max declan: 79.2 cm/sec TR max declan: 203.2 cm/sec MV A max declan: 73.1 cm/sec TR max P.5 mmHg MV E/A: 1.1 PA V2 max: 93.3 cm/sec Med Peak E' Declan: 8.2 cm/sec PA V2 mean: 68.7 cm/sec E/E' med: 9.6 PA mean P.1 mmHg Lat Peak E' Declan: 12.8 cm/sec PA pr(Accel): 41.3 mmHg E/E' lat: 6.2 E/e' average: 7.9 MV dec time: 0.28 sec SV(LVOT): 106.0 ml Reading Physician:02:18 PM
== END ==
PROVIDERS: PCP Registered Nurse Diabetes Educator; Referring Provider Registered Nurse Diabetes Educator; Visit Provider Registered Nurse Diabetes Educator
DX: I44.5 Left posterior fascicular block (principal); I10 Essential (primary) hypertension; R94.31 Abnormal electrocardiogram [ECG] [EKG]
CPT/HCPCS: 93306

== ENCOUNTER → 2023-08-10 08:23 | Outpatient (CLI) | payer OTHER, SELFPAY ==
[2023-08-10 09:19] LABS: Add Manual Diff / Slide Review NO; Basophils Absolute Auto 100 /uL (0-100); Basophils Percent Auto 0.8 % (0-2); Eosinophils Absolute Auto 200 /uL (0-450); Eosinophils Percent Auto 3.8 % (2-4); Hematocrit 40.9 % (36-46); Hemoglobin 13.7 g/dL (12.0-16.0); Lymphocytes Absolute Auto 1700 /uL (1100-4500); Lymphocytes Percent Auto 27.2 % (25-40); Mean Corpuscular HGB Conc 33.5 % (30-36); Mean Corpuscular Hemoglobin 31.3 PG (26-34); Mean Corpuscular Volume 93.2 fL (80-100); Monocytes Absolute Auto 400 /uL (0-900); Monocytes Percent Auto 6.2 % (3-14); Neutrophils Absolute Auto 4000 /uL (1500-7000); Platelet Count 272 X10^3/uL (150-400); Red Blood Cell Count 4.39 X10^6/uL (4.0-5.2); Red Cell Distribution Width 12.8 % (11.6-14.8); White Blood Cell Count 6.4 X10^3/uL (4.5-11.0)
[2023-08-10 09:34] LABS: Alanine Aminotransferase 24 IU/L (<35); Albumin 4.3 g/dL (3.5-5.0); Albumin Globulin Ratio 1.5 (1.0-2.8); Alkaline Phosphatase 61 U/L (38-126); Aspartate Aminotransferase 33 IU/L (14-36); BUN Creatinine Ratio 19.2 (6-22); Bilirubin Total 0.5 mg/dL (0.2-1.3); Blood Urea Nitrogen 14 mg/dL (7-17); Calcium 9.9 mg/dL (8.4-10.2); Carbon Dioxide 29 mmol/L (22-32); Chloride 105 mmol/L (98-107); Estimated Glomerular Filt Rate > 60 mL/min (>60); Globulin 2.8 g/dL (1.7-4.1); Glucose 99 mg/dL (70-100); HEMOLYSIS < 15 (0-50); Sodium 139 mmol/L (137-145); Total Protein 7.1 g/dL (6.3-8.2)
[2023-08-10 09:37] LABS: Potassium 5.5 mmol/L (3.4-5.1)
[2023-08-10 09:51] LABS: Free T4, Direct Thyroxine 0.61 ng/dL (0.78-2.19)
[2023-08-10 10:04] LABS: Thyroid Stimulating Hormone 3.22 uIU/mL (0.47-4.68)
== END ==
LOC: LAB 08:24
PROVIDERS: PCP Registered Nurse Diabetes Educator; Referring Provider Registered Nurse Diabetes Educator; Visit Provider Registered Nurse Diabetes Educator
DX: Z01.818 Encounter for other preprocedural examination (principal); I10 Essential (primary) hypertension
CPT/HCPCS: 36415; 80053; 84439; 84443; 85025

== ENCOUNTER → 2023-08-23 13:14 | Outpatient (CLI) | payer OTHER, SELFPAY ==
--- NOTE | 2023-08-23 13:15 | DI.MG.S_ITS ---
BILATERAL DIGITAL SCREENING MAMMOGRAM 3D/2D WITH CAD: 08/23/2023 CLINICAL: Routine screening. Baseline exam. No prior exams were available for comparison. There are scattered areas of fibroglandular density in both breasts (category b / 25%-50% glandular tissue). Current study was also evaluated with a Computer Aided Detection (CAD) system. No significant masses, calcifications, or other findings are seen in either breast. IMPRESSION: NEGATIVE There is no mammographic evidence of malignancy. A 1 year screening mammogram is recommended. Based on the Tyrer Cuzick model (a risk assessment model) the patient's lifetime risk is 8.1% and her 10 year risk is 2.8%. According to the ACR, ACS, and NCCN guidelines, an annual breast MRI exam along with mammogram is recommended if the patient's lifetime risk is 20% or greater. This exam was interpreted at Station ID: [id number]. NOTE: For mammograms, a report in lay terms will be sent to the patient. Approximately 15% of breast malignancies will not be visualized mammographically. In the management of a palpable breast mass, a negative mammogram must not discourage biopsy of a clinically suspicious lesion. Electronically Signed By: Carla bran/eva:08/23/2023 14:38:22 letter sent: Normal Exam ACR BI-RADS Category 1: Negative [id number]
== END ==
LOC: MAMMO 13:15
PROVIDERS: PCP Registered Nurse Diabetes Educator; Referring Provider Registered Nurse Diabetes Educator; Visit Provider Registered Nurse Diabetes Educator
DX: Z12.31 Encounter for screening mammogram for malignant neoplasm of breast (principal); R92.323 Mammographic fibroglandular density, bilateral breasts
CPT/HCPCS: 77063; 77067

== ENCOUNTER → 2023-09-13 14:09 | Outpatient (CLI) | payer OTHER, SELFPAY ==
[2023-09-13 14:46] LABS: Blood Urea Nitrogen 19 mg/dL (7-17); Calcium 9.8 mg/dL (8.4-10.2); Carbon Dioxide 29 mmol/L (22-32); Chloride 102 mmol/L (98-107); Estimated Glomerular Filt Rate > 60 mL/min (>60); Glucose 96 mg/dL (70-100); HEMOLYSIS < 15 (0-50); Potassium 4.1 mmol/L (3.4-5.1); Sodium 136 mmol/L (137-145)
== END ==
PROVIDERS: PCP Registered Nurse Diabetes Educator; Referring Provider Registered Nurse Diabetes Educator; Visit Provider Registered Nurse Diabetes Educator
DX: E87.5 Hyperkalemia (principal)
CPT/HCPCS: 36415; 80048

== ENCOUNTER → 2024-12-25 09:12 | Outpatient (CLI) | payer OTHER, SELFPAY ==
--- NOTE | 2024-12-25 09:14 | DI.MG.S_ITS ---
MM screening mammo BI: 12/25/2024. BI-RADS: 1 CLINICAL: 59-year old female for bilateral screening mammogram. Tyrer-Cuzick lifetime risk of 8.1%. No personal or first-degree family history of breast cancer. PRIOR EXAMS 08/23/2023. MAMMOGRAPHY TECHNIQUE: 2D and 3D (tomosynthesis) digital mammographic views obtained, with additional images as needed for full coverage. Current study was also evaluated with a Computer Aided Detection (CAD) system. DENSITY B. There are scattered areas of fibroglandular density. MAMMOGRAPHY FINDINGS Bilateral: No suspicious mass, asymmetry, microcalcification, or other abnormality seen. No significant change from comparison. IMPRESSION: * No evidence of malignancy. RECOMMENDATIONS Bilateral * Annual screening mammography. OVERALL ASSESSMENT CATEGORY BI-RADS-1: Negative. The [employer] recommends annual screening mammography beginning at age 40 for women with average risk of breast cancer. ELECTRONICALLY SIGNED: Marcelina Villalba M.D. on 12/25/2024 at 03:05:39 PM PT Interpreting Station ID: [id number]
== END ==
PROVIDERS: PCP Registered Nurse Diabetes Educator; Referring Provider Registered Nurse Diabetes Educator; Visit Provider Registered Nurse Diabetes Educator
DX: Z12.31 Encounter for screening mammogram for malignant neoplasm of breast (principal)
CPT/HCPCS: 77063; 77067